=== PATIENT | female | born 1930 | race Caucasian/White ===

== ENCOUNTER 2018-12-30 11:15 | Outpatient (CLI) | payer OTHER ==
[~2018-12-30] VITALS: Ht 162.6 cm; Wt 65.8 kg
[2018-12-30 11:59] VITALS: BP 142/59
[2018-12-30 12:07] LABS: HEMATOCRIT 30.6 % (37.0-47.0); HEMOGLOBIN 10.6 gm/dL (12.0-15.0); MCH 32.9 pg (26.0-34.0); MCHC 34.7 g/dL (28.0-37.0); MCV 94.9 fL (80.0-100.0); RBC 3.23 mil/uL (4.20-5.00); RDW 15.5 % (10.5-14.5); WBC 9.1 thou/uL (4.0-11.0)
[2018-12-30 12:13] LABS: CALCIUM 10.3 mg/dL (8.5-10.1); CREATININE 0.6 mg/dL (0.6-1.0); POTASSIUM 3.7 mmol/L (3.5-5.1)
[2018-12-30] MEDS ORDERED: SYNTHROID100 MC1 PO (12:42)
[2018-12-30] MEDS ORDERED: ASPIRIN325 PO (12:43)
[2018-12-30] MEDS ORDERED: NORVASC5 MG PO (12:44)
[2018-12-30] MEDS ORDERED: METFORMIN HCL500 MG PO (12:44)
[2018-12-30] MEDS ORDERED: FOLIC ACID1 MG PO (12:45)
[2018-12-30] MEDS ORDERED: ZYRTEC10 M4 PO (12:46)
[2018-12-30] MEDS ORDERED: VITAMIN D3400 UNIT PO (12:46)
[2018-12-30] MEDS ORDERED: VITAMINC500 PO (12:47)
[2018-12-30] MEDS ORDERED: OMEGA-31000 M1 PO (12:47)
[2018-12-30 16:39] VITALS: BP 144/62
--- NOTE | 2018-12-30 19:21 | NUR ---
pt arrived to unit at 1630 via electroplating laborer from a angiogram. Right groin has remained cdi, vss, d/c home, script sent tp pharm
== END 2018-12-30 20:13 | disposition home or self-care (01) ==
LOC: SPEC 11:15 → 2N 16:35 → SPEC 20:13
PROVIDERS: Nuclear Medicine Nuclear Cardiology
DX: I70.248 Atherosclerosis of native arteries of left leg with ulceration of other part of lower leg (principal); I70.1 Atherosclerosis of renal artery; I10 Essential (primary) hypertension; E78.5 Hyperlipidemia, unspecified; I25.10 Atherosclerotic heart disease of native coronary artery without angina pectoris; M06.9 Rheumatoid arthritis, unspecified; E11.9 Type 2 diabetes mellitus without complications; Z85.828 Personal history of other malignant neoplasm of skin; Z98.890 Other specified postprocedural states; Z95.5 Presence of coronary angioplasty implant and graft; Z88.2 Allergy status to sulfonamides; Z88.6 Allergy status to analgesic agent; Z79.899 Other long term (current) drug therapy; Z79.82 Long term (current) use of aspirin
CPT/HCPCS: 10081

== ENCOUNTER 2018-12-31 06:53 | Inpatient (IN) | payer OTHER ==
[~2018-12-31] VITALS: Ht 162.6 cm; Wt 65.5 kg
[~2018-12-31 06:53] MED LIST: ASPIRIN325 PO; FOLIC ACID1 MG PO; METFORMIN HCL500 MG PO; NORVASC5 MG PO; OMEGA-31000 M1 PO; SYNTHROID100 MC1 PO; VITAMIN D3400 UNIT PO; VITAMINC500 PO; ZYRTEC10 M4 PO
[2018-12-31 18:12] VITALS: BP 134/57
[2018-12-31 18:32] LABS: ABSOLUTE NEUTROPHILS 9.5 thou/uL (1.4-8.2); BASOPHILS 0.2 % (0.0-2.0); EOSINOPHILS 0.1 % (0.0-3.0); HEMATOCRIT 30.4 % (37.0-47.0); HEMOGLOBIN 10.5 gm/dL (12.0-15.0); LYMPHOCYTES 6.8 % (24.0-44.0); MCH 32.6 pg (26.0-34.0); MCHC 34.4 g/dL (28.0-37.0); MCV 94.6 fL (80.0-100.0); MONOCYTES 6.6 % (1.0-8.0); PLATELET COUNT 360 thou/uL (150-400); POLYS 86.3 % (36.0-66.0); RBC 3.22 mil/uL (4.20-5.00); RDW 15.3 % (10.5-14.5)
[2018-12-31 18:53] LABS: ALBUMIN 2.8 g/dL (3.4-5.0); CALCIUM 9.5 mg/dL (8.5-10.1); CREATININE 0.8 mg/dL (0.6-1.0); MAGNESIUM 1.4 mg/dL (1.8-2.4); POTASSIUM 3.8 mmol/L (3.5-5.1); TOTAL BILIRUBIN 0.4 mg/dL (<0.1-1.0); TOTAL PROTEIN 6.8 g/dL (6.4-8.2)
[2018-12-31 19:22] VITALS: BP 130/68
--- NOTE | 2018-12-31 22:30 | NUR ---
PROGRESS PT ADMITTED WITH CHRONIC LEFT FOOT/ANKLE WOUNDS. BEING SEEN BY WOUND CARE CLINIC. PICTURES AND WOUNDS DOCUMENTED PER PROTOCOL. WOUNDS COVERED WITH KERLIX , DRESSINGS REMAIN C/D/I. SEEN BY WOUND CARE NURSE BUT NO ORDERS WRITTEN. DR.DAN DUBOIS AND WOUND CARE CONSULTED WILL SEE PT TOMORROW. TAKING HYDROCODNE FOR PAIN Q4HRS WITH EFFECT PT RESTS AFTER.
[2018-12-31 23:09] LABS: URINE BILIRUBIN NEGATIVE (Negative); URINE BLOOD NEGATIVE (Negative); URINE CLARITY CLEAR; URINE COLOR YELLOW; URINE GLUCOSE-RANDOM* NEGATIVE (Negative); URINE KETONES NEGATIVE (Negative); URINE LEUKOCYTES-REFLEX TRACE (Negative); URINE NITRITE-REFLEX NEGATIVE (Negative); URINE PROTEIN (DIPSTICK) NEGATIVE (Negative); URINE SPECIFIC GRAVITY <= 1.005 (1.005-1.035); URINE UROBILINOGEN 0.2 E.U./dl (0.2-1.0)
--- NOTE | 2018-12-31 23:18 | NUR ---
REPORT GIVEN TO CHIOMA TORRES FROM [facility], PT TRANSFERRED TO ROOM 432 MED/SURG BED FROM 462 TELE BED. PT TRANSPORTED VIA BED WHEELCHAIR AND ALL OTHER PERSONAL BELONGINGS WITH.
[2019-01-01 04:00] VITALS: BP 119/51
[2019-01-01 05:38] LABS: ABSOLUTE NEUTROPHILS 6.5 thou/uL (1.4-8.2); BASOPHILS 0.4 % (0.0-2.0); EOSINOPHILS 0.3 % (0.0-3.0); HEMATOCRIT 27.6 % (37.0-47.0); HEMOGLOBIN 9.9 gm/dL (12.0-15.0); MCH 33.8 pg (26.0-34.0); MCV 93.9 fL (80.0-100.0); MONOCYTES 8.4 % (1.0-8.0); PLATELET COUNT 335 thou/uL (150-400); POLYS 83.9 % (36.0-66.0); RBC 2.94 mil/uL (4.20-5.00); RDW 15.5 % (10.5-14.5); WBC 7.7 thou/uL (4.0-11.0)
[2019-01-01 05:53] LABS: CALCIUM 8.9 mg/dL (8.5-10.1); CREATININE 0.6 mg/dL (0.6-1.0); MAGNESIUM 1.4 mg/dL (1.8-2.4); POTASSIUM 3.8 mmol/L (3.5-5.1)
--- NOTE | 2019-01-01 07:53 | NUR ---
pt transferred to [facility] at around 11pm.Alert and oriented. Given [place] x 1.Up with assist x 1 to BS. Drsg to E c/d/i.Plan for MRI today. Afebrile. No further concerns.
[2019-01-01 08:18] VITALS: BP 118/61
--- NOTE | 2019-01-01 14:05 | NUR ---
WOUND CONSULT: PT. WAS SEEN TODAY BY DR. MAYORGA AND MYSELF. PT. HAS HAD A SURGICAL REPAIR TO HER LEFT FOOT AND LEG FROM A TIB-FIB FRACTURE IN 2018. THE BOOT WAS LEFT IN PLACE AND WOUNDS HAVE OCCURED BECUASE OF THIS. PT. LEFT FOOT IS SHOWING SIGNS OF INFECTION. LOCAL WOUND CARE WILL BE DONE AND ORTHO CONSULT FOR POSSIBLE HARDWARE REMOVAL AND WASH OUT. RECOMMENDATIONS: WOUND CARE TO LEFT FOOT: GENTLY CLENASE WITH WOUND CLEANSER OR NORMAL SALINE, APPLY GENTIMYCIN TO WOUND BED, COVER WITH XEROFORM, SECURE WITH KERLIX AND TAPE, COMPLETE CARES DAILY AND PRN. PT. AND STAFF NURSE WERE INSTRUCTED ON PLAN OF CARE.
--- NOTE | 2019-01-01 14:26 | NUR ---
Nutrition: pt admitted with non healing wound on left food. Hx PVD, PAD, DM. BG 148-215 on heart healthy diet. Pt reports a decreased appetite for some time although she still eats 3 meals/day-is not a big eater. Understands importance of protein for wound healing and can state sources. Drinks ensure daily at home, ordered at lunch. On ascorbic acid, vitamin D, folic acid. Instructed on meal ordering as desired, pt generally likes the meal offerings. May consider adding carb controlled to diet order if BG consistently elevated. Low nutrition risk.
--- NOTE | 2019-01-01 15:49 | NUR ---
ASSESASMENT-PT LIVES AT HOME WITH HER 89 YEAR OLD WHO IS IN GOOD HEALTH AND INDEPENDENT. HE DRIVES. THEY HAVE A SON IN [place] AND WONDERFUL NEIGHBORS. PT HAS A CANE, WALKER OR WC FOR MOBILITY. THEY HAVE A RAMP TO ENTER THEIR RANCH STYLE HOME. PT HAS HAD HH IN THE PAST BUT CANNOT REMEMBER THE NAME OF THE AGENCY. PT HAS BEEN TO REHAB AT [facility] IN THE PAST. FOLLOWING TO ASSIST WITH DC PLANNING.
[2019-01-01 16:50] VITALS: BP 135/53
--- NOTE | 2019-01-01 19:43 | NUR ---
Assumed pt care at 7am.Pt in and out of bed to bsc with assist.Assessment completed.vss.Pt left mri early this am and returned to room one hour later. Pt tolerated med and diet but poor appetite noted.Dr stack and Marlee here,order noted.Wound culture obtained x2 and sent to lab .Drsg change done to left ankle as ordered. at bs most of the times today.Medicated pt twice with hydrocodone with partial relief.Received call from Dr Fowler later this afternoon that pt should be npo fatr mn.Report off to noc rn.
[2019-01-01 20:48] VITALS: BP 127/49
--- NOTE | 2019-01-02 02:50 | NUR ---
PT ALERT AND ORIENTED. PLEASANT. PAIN FAIRLY COTROLLED WITH PAIN MEDS. DRSG TO L FOOT IS C/D/I. NWB TO L FOOT.PIVOTS TO BSC.AFEBRILE.
[2019-01-02 07:50] VITALS: BP 146/48
[2019-01-02 11:20] VITALS: BP 136/63
--- NOTE | 2019-01-02 12:06 | NUR ---
Assumed pt care at 7am.Pt in bed resting and very anxious about going for surgery today.Assessment completed.Pt c/o left ankle pain rated 6/10.[Po pain med given with relief.Received call from operating room,updates given.At 1115, pt left per bed to surgery accompanied by her .Will continue to monitor.
--- NOTE | 2019-01-02 12:42 | NUR ---
Pt TO HAVE I&D OF L ANKLE WITH POSSIBLE HARDWARD REMOVAL. PT WILL PLACE Pt ON HOLD, PLEASE SEND NEW PT ORDERS WITH UPDATED WB STATUS WHEN Pt IS APPROPRIATE FOR PT.
--- NOTE | 2019-01-02 13:24 | HC ---
[facility] [place] [address] CONSULTATION Name: CHIKI SHIELDS Room #: 432 ADM IN M.R.#: [id number] Admission: 12/31/18 ������������������ Attend Phys: Alton Aguirre MD Discharge: ������������������ Date of : 32 Report #: [id number] THIS REPORT FOR: //name// CC: Emery Tolentino DATE OF SERVICE: 01/01/2019 TYPE OF REPORT: Infectious diseases consultation. REASON FOR CONSULTATION: I was asked to evaluate concerning left lower extremity surgical site infection. HISTORY OF PRESENT ILLNESS: The patient is an 88-year old with underlying peripheral vascular disease, diabetes and coronary artery disease; who fell this past month, fractured her left tibia and fibula and underwent ORIF. Postoperatively, developed ulceration and blistering to the dorsum of her foot and medial ankle. Also, developed a drainage from her anterior medial incision. No fever, chills or sweats. She was brought into the hospital after being seen in the outpatient wound Care Center. She had arterial studies done noting proximal obstruction. Yesterday, underwent angioplasty and stenting of the left superficial femoral artery. She continues to have pain in the ankle and foot. No fever, chills or sweats. REVIEW OF SYSTEMS: No cough or sputum production. No chest pain. Denies any GI or complaints. A 10-point review of systems was negative other than what is described above. ALLERGIES: CODEINE and SULFA. MEDICATIONS: As noted on her NOV, having been started on vancomycin. PAST MEDICAL HISTORY: Hyperlipidemia, diabetes, rheumatoid arthritis, coronary artery disease, skin cancer, breast cancer, lumbar radiculopathy and coronary artery stents. FAMILY HISTORY: Noncontributory. SOCIAL HISTORY: Previous tobacco use. Minimal alcohol use. PHYSICAL EXAMINATION: VITAL SIGNS: Afebrile, hemodynamically stable. GENERAL: Alert and cooperative. EYES: Without scleral icterus. MOUTH: Without mucositis. [facility] [address] [place] [address] CONSULTATION Name: CHIKI SHIELDS Room #: 432-P [facility] IN [place].#: [id number] Admission: 12/31/18 ������������������ Attend Phys: Alton Aguirre MD Discharge: ������������������ Date of : 32 Report #: [id number] NECK: Supple. No palpable adenopathy. SKIN: Without rash or decubitus other than what we described in her left lower extremity. LUNGS: Clear. HEART: Regular, without murmur. ABDOMEN: Soft and nontender. EXTREMITIES: With left lower extremity wounds to the dorsum of her foot and medial malleolus region. There was eschar. There was no significant drainage. The anterior medial incision had a sinus tract with purulent drainage. Moderate surrounding erythema. She was exquisitely tender over the medial lower leg, ankle and foot. Laterally, the incision was well approximated. There was no associated cellulitis in this region. Sensation in the toes was normal. Pulses were palpable on the foot. NEUROLOGICAL: Cranial nerves intact. Strength in the upper extremities was normal. RADIOLOGICAL DATA: MRI scan of the left ankle showed tibial and fibular fractures with hardware repair. She had a tibiotalar joint effusion. No definite abscess evident. X-rays of the foot showed fractures as above. LABORATORY DATA: Sedimentation rate 80. Hemoglobin 9.9; WBC 7.7 and platelet count 335,000. Creatinine 0.6. IMPRESSION: 1. Left lower extremity tibia fibular fracture status post open reduction and internal fixation, now with surgical site infection. Still concerned about the fracture site of the tibia. She has severe peripheral vascular disease and is now status post atherectomy, balloon angioplasty and stenting of the left superficial femoral artery. 2. Diabetes. 3. Hypertension. 4. Previous cancers of skin and breast. RECOMMENDATIONS: 1. We will continue vancomycin and cefepime pending culture results. Have obtained a culture of the drainage from the medial ankle sinus tract. I would like Orthopedic Surgery to evaluate. I suspect she will need further surgical intervention. 2. Controlled diabetes. 3. Anticoagulation regarding previous stenting procedure done yesterday. ��������������������������������������������� <ELECTRONICALLY SIGNED> ���������������������������������������� By: Babatunde Sanchez MD ��������������������������������������������� 01/02/19 1324 [id number] Babatunde Sanchez MD /nt
--- NOTE | 2019-01-02 16:33 | NUR ---
GAVE PT'S AND NEIGHBOR COPY OF [facility] SNF LIST AND CIRCLED FACILITIES THAT DR STEPHEN/TIERRA FOLLOW. PT DOES NOT WANT TO RETURN TO [facility].
[2019-01-02 16:38] VITALS: BP 109/38
[2019-01-02 21:22] VITALS: BP 114/41
[2019-01-02 21:58] VITALS: BP 121/80
[2019-01-03 04:57] VITALS: BP 123/52
[2019-01-03 05:25] LABS: HEMATOCRIT 21.2 % (37.0-47.0); MCH 32.3 pg (26.0-34.0); MCHC 34.2 g/dL (28.0-37.0); MCV 94.6 fL (80.0-100.0); RBC 2.24 mil/uL (4.20-5.00); RDW 15.5 % (10.5-14.5); WBC 9.1 thou/uL (4.0-11.0)
[2019-01-03 05:35] LABS: HEMOGLOBIN 7.2 gm/dL (12.0-15.0)
--- NOTE | 2019-01-03 08:04 | NUR ---
ASSESSMENT COMPLEETD.NOTED MORE DRAINAGE AT THE SIDE OF HER DRSG ON HER L LOWER LEG.CONT ON IV ABX.C/O PAIN ON HER ANKLE,MANAGED WITH PO MED.UP WITH ASSIST X1,NON WT BEARING ON L MAINTAINED.REPORT TO AM NURSE.
[2019-01-03 09:14] VITALS: BP 123/43
--- NOTE | 2019-01-03 14:34 | NUR ---
ASSESMENT COMPLETED. VSS. A/O. PAIN MANAGED BY MEDS ORDERED. NO NOTED SOA. NO NV. PT RESTING IN BED. UP WITH ASSIST. WILL CONT. TO MONITOR.
[2019-01-03 16:05] VITALS: BP 114/39
[2019-01-03 20:00] VITALS: BP 119/45
[2019-01-04 04:00] VITALS: BP 120/50
[2019-01-04 04:32] LABS: MCH 32.7 pg (26.0-34.0); MCHC 34.7 g/dL (28.0-37.0); MCV 94.2 fL (80.0-100.0); RBC 1.94 mil/uL (4.20-5.00); RDW 15.2 % (10.5-14.5); WBC 9.4 thou/uL (4.0-11.0)
[2019-01-04 04:42] LABS: HEMOGLOBIN 6.4 gm/dL (12.0-15.0)
[2019-01-04 04:43] LABS: HEMATOCRIT 18.3 % (37.0-47.0)
[2019-01-04 06:04] LABS: % SATURATION 28 % (20-39); IRON 44 ug/dL (50-170); TIBC 160 ug/dL (250-450)
--- NOTE | 2019-01-04 07:30 | NUR ---
Assumed care of pt at 1900. Pt alert and oriented x4. Dressing on left ankle intact. Pain controlled with prn pain meds. IV antibiotics administered. Non-weight bearing on left lower extremity. Critical hg 6.4 and hematocrit 18.3 this am. Quantitative Manager on duty notified and new orders noted. Obtained blood from blood bank this am and handed it to incoming am rn. Call light within reach.
[2019-01-04 07:34] VITALS: BP 115/73; BP 120/72; BP 123/49; BP 133/43; BP 144/49
[2019-01-04 07:49] VITALS: BP 118/46
--- NOTE | 2019-01-04 12:43 | NUR ---
V.S. AT 10:40 98.1 18 76 122/68 99 % RA. PT HAS BLOOD INFUSING WITH NO ADVERSE REACTIONS. PT ALERT XS 4.
--- NOTE | 2019-01-04 16:22 | NUR ---
CALLED IV TEAM TO NOTIFY OF PICC LINE PLACEMENT. PT IS WATCHING TV AT BEDSIDE. PT WAS GIVEN PRN PAIN MED EARLIER AND RESTING COMFORTABLY.
--- NOTE | 2019-01-04 17:42 | NUR ---
PT IN BED EATING DINNER GETS UP TO BEDSIDE COMMODE. PT'S AT THE BEDSIDE. HAD 1 UNIT OF BLOOD TODAY. PT IS PLEASANT AND COOPERATIVE WITH CARE.
--- NOTE | 2019-01-04 19:50 | NUR ---
CONSULTED TO PLACE A PICC FOR A PATIENT NEEDING HOME IV ANTIBIOTICS. ORDER AND CONSENT NOTED. THE PROCEDURE WELL BENIFITS AND RISK FOR DVT AND INFECTION DISCUSSED AND SHE VERBALIZED UNDERSTANDING. THE LEFT UPPER ARM BRACHIAL WAS WIDLEY PATENT. A #4F SINGLE LUMEN POWER PICC WAS PLACED PER HOSPITAL POLICY AFTER A BEDSIDE TIMEOUT WAS COMPLETE. LINE WAS TRIMMED TO 43CM AND ADVANCED WITHOUT DIFFICULTY. LINE WAS CONFIRMED IN GOOD POSITION FOR BY A STAT CHEST XRAY. 4E NOTIFIED LINE IS RELEASED FOR USE
[2019-01-04 19:54] VITALS: BP 153/53
--- NOTE | 2019-01-04 22:00 | NUR ---
ASSESSMENT COMPLETED. PICC IN PLACE AND IV ABTS INFUSED. PT GIVEN PAIN MEDS-REPORTS PAIN HAS BEEN MORE TODAY SINCE THE DRSG CHANGE EARLIER IN THE DAY.LLE WITH DRSG C/D/I-NEUROVASCULAR INTACT.PT IS PLEASANT AND COOPERATIVE. PIVOTS TO THE BSC-SBA X1. AFEBRILE. HS BLOOD SUGAR OF 86-PT NOT WANTING SNACKS OFFERED. VSS. NO FURTHER COMPLAINS.WILL CONTINUE WITH POC TILL EOS.
[2019-01-05 04:35] VITALS: BP 150/59
[2019-01-05 06:05] LABS: HEMOGLOBIN 8.1 gm/dL (12.0-15.0); MCH 32.5 pg (26.0-34.0); MCV 92.8 fL (80.0-100.0); RBC 2.48 mil/uL (4.20-5.00); RDW 16.5 % (10.5-14.5); WBC 8.6 thou/uL (4.0-11.0)
[2019-01-05 06:23] LABS: CALCIUM 9.1 mg/dL (8.5-10.1); CREATININE 0.6 mg/dL (0.6-1.0); MAGNESIUM 1.4 mg/dL (1.8-2.4)
[2019-01-05 08:04] VITALS: BP 140/43
--- NOTE | 2019-01-05 14:47 | NUR ---
WOUND FOLLOW UP: PT. WAS SEEN TODAY BY WOUND CARE. PT. HAD SURGERY OVER THE WEEKEND AND HARDWARE WAS REMOVE AND WASHOUT WAS COMPLETED. PT. WOUNDS APPEAR CLINICALLY BETTER TODAY. RECOMMENDATIONS: CONTINUE WITH CURRENT PLAN OF CARE. PT.AND STAFF NURSE WERE INSTRUCTED ON PLAN OF CARE.
--- NOTE | 2019-01-05 15:51 | NUR ---
I have reviewed the documentation by AMIE MURRIETA from 01/05/19 to 01/05/19 and I concur with it. CAMILA RODRIGUEZ
[2019-01-05 16:09] VITALS: BP 134/40
--- NOTE | 2019-01-05 16:54 | NUR ---
FAXED REFERRAL TO [facility] LEFT MSG WITH ADM. TO REVIEW REFERRAL AND DCP WILL F/U IN AM. DCP TO FOLLOW.
--- NOTE | 2019-01-05 17:09 | NUR ---
MET WITH PT AND IN ROOM AND THEY THINK TRYING TO GO HOME ON IV ABX IS TOO MUCH & ARE INTERESTED IN [facility]. ASKED DC ROUND BONER TO FAX REFERRAL TO THEM. FOLLOWING.
--- NOTE | 2019-01-05 18:46 | NUR ---
NO CHANGE SINCE AM ASSESMENT. PAIN MANAGED BY MEDS ORDERED. UP WITH STAND BY. WILL CONT. TO MONITOR.
[2019-01-05 20:05] VITALS: BP 131/47
[2019-01-06 04:12] VITALS: BP 134/39
[2019-01-06 07:25] VITALS: BP 133/54
--- NOTE | 2019-01-06 07:36 | NUR ---
ASSESMENT COMPLETED. VSS. A/O. PAIN MANAGED BY MEDS- MORE CONTROLLED TODAY. NO SOA. NO NV. GOAL IS ICNREASE ACTIVITY TODAY. PT RESTING IN BED BED ALARM ON. WILL CONT. TO MONITOR.
--- NOTE | 2019-01-06 09:52 | HC ---
[facility] [place] [address] CONSULTATION Name: CHIKI SHIELDS Room #: 432- ADM IN M.[place].#: [id number] Admission: 12/31/18 ������������������ Attend Phys: Alton Aguirre MD Discharge: ������������������ Date of : 32 Report #: [id number] THIS REPORT FOR: //name// CC: Emery Tolentino DATE OF SERVICE: 01/01/2019 CHIEF COMPLAINT: Ulceration to the left medial ankle. HISTORY OF PRESENT ILLNESS: This is an 88-year-old female patient with a history of a closed tibia and fibula fracture on 11/23/2018. She underwent open reduction and internal fixation, was placed in a boot. She underwent rehab, felt that the boot was rubbing and too tight and developed some tissue necrosis involving the medial portion of the left ankle. It has become infected and began draining and has been admitted for further evaluation and treatment. PAST MEDICAL HISTORY: Significant for history of peripheral arterial disease, as well as diabetes mellitus. The patient had an open reduction and internal fixation of the left ankle in October. She has history of hyperlipidemia, type 2 diabetes mellitus, rheumatoid arthritis and coronary artery disease and lumbar radiculopathy. MEDICATIONS: Include Synthroid, Norvasc, Glucophage, Zyrtec, vitamin D, vitamin C, omega 3. SOCIAL HISTORY: Positive for smoking cigarettes 1 pack per day. Admits to occasional alcohol consumption. FAMILY HISTORY: Noncontributory. REVIEW OF SYSTEMS: CONSTITUTIONAL: No fever, chills, weight loss. NEUROLOGICAL: The patient denies focal weakness, numbness or tingling. EYES: The patient denies visual changes, redness or drainage. ENT: The patient denies earache, nasal drainage or sore throat. CARDIOVASCULAR: The patient denies chest pain or palpitations. PULMONARY: The patient denies cough or shortness of breath. GASTROINTESTINAL: The patient denies nausea, vomiting or abdominal pain. ORTHOPEDIC: The patient complains of pain, swelling and drainage from her left ankle. Other systems in a 14-point review of systems are negative. PHYSICAL EXAMINATION: [facility] [address] [place] [address] CONSULTATION Name: CHIKI SHIELDS Room #: 432-P [facility] IN M.R.#: [id number] Admission: 12/31/18 ������������������ Attend Phys: Alton Aguirre MD Discharge: ������������������ Date of : 32 Report #: [id number] VITAL SIGNS: At this time include temperature 37.4, pulse 94, respiratory rate 18, blood pressure 118/61. GENERAL: This is a chronically ill-appearing female patient who appears to be in no distress. HEENT: Normocephalic. Nose and throat are clear. NECK: Supple. LUNGS: Clear. HEART: Sounds were regular rhythm without murmur. ABDOMEN: Soft. Bowel sounds present. EXTREMITIES: Examination of the lower extremities demonstrates diminished distal pulses, 2+ edema bilaterally. She has significant erythema to the left lower leg and dorsal foot. There is area of pressure necrosis or simply and necrotic tissue over the medial ankle. This is partially and there is a purulent drainage coming from beneath. I can probe easily beneath this and find that there is exposed hardware present. CLINICAL IMPRESSION: 1. Pressure ulceration to the left medial ankle, complicated by diabetes mellitus and peripheral arterial disease. 2. Wound infection with infected underlying hardware. 3. History of tibia and fibula fracture, status post open reduction and internal fixation, 11/23/2018. RECOMMENDATIONS: At this point in time, we will check arterial Dopplers and then we will consul interventional radiology. She may require percutaneous intervention. We will consult orthopedic surgery. Likely, she will require explantation of hardware. This is certainly a difficult situation and she would be at risk for below-knee amputation or possibly higher level amputation. We will see how we do once we get the hardware out and try to get the infection under control. She may be a good candidate for a skin substitute in hopes that we could begin to granulate over the bone. She will need stabilization for the fracture, likely with a splint versus the possibility of an external fixator. I have discussed this with the orthopedic surgeon, as well as infectious disease and interventional radiology. I have discussed these details in depth with the patient and her at the bedside. I appreciate being asked to see her in consultation. ��������������������������������������������� <ELECTRONICALLY SIGNED> ���������������������������������������� By: Maurice Whalen MD ��������������������������������������������� 01/06/19 [id number] Maurice Whalen MD /nt
--- NOTE | 2019-01-06 15:04 | NUR ---
LAND DEVELOPMENT PROJECT MANAGER FROM [facility] HERE TO MEET PT AND HER . AWAITING INS. AUTH.
--- NOTE | 2019-01-06 15:40 | NUR ---
WOUND FOLLOW UP: PT. WAS SEEN TODAY BY DR. MAYORGA AND MYSELF. PT. WOUNDS ARE CLINICALLY BETTER TODAY. PT. IS IN GOOD SPIRITS. RECOMMENDATIONS: CONTINUE WITH CURRENT PLAN OF CARE. PT. AND STAFF NURSE WERE INSTRUCTED ON PLAN OF CARE.
[2019-01-06 17:10] VITALS: BP 130/55
[2019-01-06 20:07] VITALS: BP 147/52
[2019-01-07 04:53] VITALS: BP 151/45
--- NOTE | 2019-01-07 05:27 | NUR ---
Assumed care of pt at 1900. Pt alert and oriented x4. Pt requests eye drops. Continuous Miner Operator Helper on duty notified and new order noted. Dressing on left foot clean and intact. Hold metformin due to contrast used. Non-weight bearing on left lower extremity. Uses bedside commode. Call light within reach. Will continue to monitor.
[2019-01-07 05:49] LABS: HEMATOCRIT 24.8 % (37.0-47.0); HEMOGLOBIN 8.4 gm/dL (12.0-15.0); MCH 31.9 pg (26.0-34.0); MCHC 33.9 g/dL (28.0-37.0); RBC 2.64 mil/uL (4.20-5.00); RDW 16.1 % (10.5-14.5); WBC 7.3 thou/uL (4.0-11.0)
[2019-01-07 05:55] LABS: CALCIUM 9.3 mg/dL (8.5-10.1); CREATININE 0.7 mg/dL (0.6-1.0); POTASSIUM 3.9 mmol/L (3.5-5.1)
[2019-01-07 07:44] VITALS: BP 137/51
--- NOTE | 2019-01-07 08:46 | NUR ---
I have reviewed the documentation by AMIE MURRIETA from 01/06/19 to 01/06/19 and I concur with it. CAMILA RODRIGUEZ
--- NOTE | 2019-01-07 09:53 | NUR ---
[facility] FAXED IV ABX ORDERS TO [facility] SPOKE WITH WOLFGANG IN ADM. SHE RECEIVED ORDERS AND STILL WTG ON AUTH . [facility] TO FOLLOW.
[2019-01-07 09:54] VITALS: BP 137/57
--- NOTE | 2019-01-07 11:11 | NUR ---
PT A&OX4, TRANFERS WITH ASSIST X1 TO CHAIR/BSC. PICC LINE INTACT IN TIM AND L FA. DRSG TO L ANKLE C/D/I. TOLERATING PO PAIN MEDS. WILL CONT POC.
[2019-01-07] MEDS ORDERED: LATANOPROST2.5 ML OPHTHALMIC (14:06)
[2019-01-07] MEDS ORDERED: HYDROCODON-ACE1 EAC7 PO (14:06)
[2019-01-07] MEDS ORDERED: MIRALAX17 GM PO (14:06)
[2019-01-07] MEDS ORDERED: MAGNESIUM400 MG PO (14:06)
--- NOTE | 2019-01-07 15:34 | NUR ---
Pt dcing to snf at [facility] today. They have confirmed that they have rec'd ins authorization. Pt and spouse updated at bedside. The snf is sending a w/c van to transport the pt at 4:30. All parties updated. Chart copy, orders and scripts ready to be sent with the pt. Dc land use planner to fax the final orders and nursing to call report. Pt to be skilled for iv atb and therapy.
--- NOTE | 2019-01-07 16:15 | NUR ---
DC ORDERS RECEIVED. TIM PICC LINE WILL REMAIN IN PLACE FOR IV ANTIBIOTIC AT SNF. REPORT CALLED TO [place] AT [facility]. AWAITING FOR TRANSPORTATION.
--- NOTE | 2019-01-08 11:20 | O ---
[facility] [place] [address] OPERATIVE REPORT Name: CHIKI SHIELDS Room #: 432-P [facility] IN M.R.#: [id number] Admission: 12/31/18 ������������������ Attend Phys: Alton Aguirre MD Discharge: 01/07/19 ������������������ Date of : 32 Report #: [id number] THIS REPORT FOR: //name// CC: Emery Lozadahens DATE OF SERVICE: 01/02/2019 PREOPERATIVE DIAGNOSIS: Postoperative left ankle infection with medial ankle eschar down to exposed hardware. POSTOPERATIVE DIAGNOSIS: Postoperative left ankle infection with medial ankle eschar down to exposed hardware. PROCEDURE: 1. Debridement and irrigation of left angle down to bone. 2. Hardware removal, left distal medial tibial plate. 3. Application of a short leg splint. SURGEON: Michael Reaves MD. UPHOLSTERY HANDLER: Gayathri Lincoln PA-C. ANESTHESIA: LMA. FINDINGS: Exposed hardware over the distal medial malleolus with purulent drainage from the wound, medial eschar measuring 7 x 7 cm, a dorsal foot eschar measuring 3 x 4 cm. SPECIMENS: Cultures were taken from the bone. ESTIMATED BLOOD LOSS: 50 mL. COMPLICATIONS: None. CONDITION UPON LEAVING OPERATING ROOM: Stable. INDICATION FOR PROCEDURE: The patient is an 88-year-old female who a little over a month ago sustained a distal third tib-fib fracture of the left leg. She was treated at [facility] by Dr. Stevan Woodall with ORIF. Evidently, over the past several weeks, she has had a pain in her medial ankle and came to see wound care, was found to have an eschar over her medial ankle with exposed hardware deep in the wound. She was admitted to the hospital for treatment. [address] [address] OPERATIVE REPORT Name: CHIKI SHIELDS Room #: 432-P [facility] IN [place].#: [id number] Admission: 12/31/18 ������������������ Attend Phys: Alton Aguirre MD Discharge: 01/07/19 ������������������ Date of : 32 Report #: [id number] DESCRIPTION OF PROCEDURE: Risks, benefits, alternatives, complications were discussed in detail with the patient including but not limited to risk of anesthesia, risk of damage to nerves, arteries, blood vessels, risk for infection, bleeding, continued infection and possible need for below knee amputation. Plan was for debridement and irrigation of the wound and hardware removal. Informed consent was obtained. The patient's left lower extremity was appropriately marked in the preoperative holding area. She had previously been on antibiotics, so repeat IV antibiotics were not given. brought to the operating room and placed in supine position on operating room table. LMA anesthesia was induced without complication. Tourniquet was placed on the left thigh. Left lower extremity was prepped and draped in normal sterile fashion. Timeout was performed properly identifying the patient and procedure as well as the instrumentation. All in the operating room were in agreement. The eschar over the medial ankle was removed with a 10 blade and there was obvious exposed distal hardware. The medial incision was then opened with 10 blade and the wound was opened all the way up to the proximal area of the plate. Screws were then removed from the plate. There was purulence in this area and this was cultured. Through the screws were cold welded to the plate, so the plate actually had to be just removed manually by pulling it up and off the bone. The tibial fracture was obviously not healed as she is less than 3 months out from her surgery. This was then thoroughly irrigated with normal saline. The skin incision was closed with 2-0 nylon. The dorsal foot wound was unroofed also. Dorsal wound measured 3 x 4 cm. The medial wound measured approximately 7 x 7 cm. After this, 4 x 4s were soaked in Dakin solution and applied. Webril was applied and a short leg posterior splint was molded in order to be removed for wound care. The patient tolerated this procedure well and went to recovery room under care of anesthesia postoperatively. ��������������������������������������������� <ELECTRONICALLY SIGNED> ���������������������������������������� By: Michael Reaves MD ��������������������������������������������� 01/08/19 1120 [id number] Michael Reaves MD /nt
--- NOTE | 2019-01-08 11:20 | HC ---
[facility] [place] [address] CONSULTATION Name: CHIKI SHIELDS Room #: 432-P [facility] IN M.R.#: [id number] Admission: 12/31/18 ������������������ Attend Phys: Alton Aguirre MD Discharge: 01/07/19 ������������������ Date of : 32 Report #: [id number] THIS REPORT FOR: //name// CC: Emery Lozadahens DATE OF SERVICE: 01/02/2019 REASON FOR CONSULTATION: Left ankle eschar with exposed hardware. HISTORY OF PRESENT ILLNESS: The patient is an 88-year-old female who about a month or so ago fell and sustained a distal third tib-fib fracture. She was treated at [facility] by Dr. Stevan Woodall with ORIF of her distal third tib-fib fracture. She had a medial tibial plate and a lateral fibular plate placed. Evidently, she was placed in boot and she developed a wound over her medial ankle with eschar over this. She was seen by wound care and was sent to the hospital for admission. PAST MEDICAL HISTORY, MEDICATIONS AND ALLERGIES: All been reviewed and on the chart. PHYSICAL EXAMINATION: GENERAL: Well-developed, well-nourished female in no acute distress. She is alert and oriented, pleasant, cooperative with exam. EXTREMITIES: Examination of the left ankle shows to have a large eschar approximately 7 x 7 cm over her medial ankle. There is exposed hardware, deep in the wound. She has a second small eschar over her anterior foot. This is about 2 x 3 cm. There was purulence coming from the previous wound. Her lateral incision is well healed. She has decreased sensation to light touch. She does have brisk capillary refill. X-RAY EXAMINATION: Two-view of the left tib-fib shows to have ORIF of her distal third tib-fib fracture with fracture well-reduced. There is still evidence of fracture line on her tibia and her fibula. MRI scan has been reviewed also. ASSESSMENT: Left medial ankle pressure ulcer with exposed hardware, status post open reduction and internal fixation distal third tib-fib fracture. PLAN: Diagnosis and treatment options were discussed today with the patient and her . We discussed options including removal of hardware with debridement, irrigation and wound care in hopes to heal the medial wound. We also discussed the fact that secondary to her diabetes as well as peripheral vascular disease, my expectation of this healing is very low. We discussed the possibility of a below-knee amputation for definitive treatment. She is not [address] [address] CONSULTATION Name: CHIKI SHIELDS Room #: 432-P [facility] IN M.R.#: [id number] Admission: 12/31/18 ������������������ Attend Phys: Alton Aguirre MD Discharge: 01/07/19 ������������������ Date of : 32 Report #: [id number] interested in this at this time. We will proceed with irrigation and debridement of the left medial ankle with hardware removal of the tibia and she is understanding and wished to proceed. Thank you for allowing us to participate in care of the patient. ��������������������������������������������� <ELECTRONICALLY SIGNED> ���������������������������������������� By: Michael Reaves MD ��������������������������������������������� 01/08/19 1120 1422 1603 Michael Revaes MD /nt
== END 2019-01-07 18:31 | DRG 492 ==
LOC: HYPER 06:53 → 4W 16:47 → 4E 16:47
PROVIDERS: Hospitalist; Nurse Practitioner; Nurse Practitioner Acute Care; Orthopaedic Surgery; ADMIT Internal Medicine
PROC: 0QPH04Z Removal of Internal Fixation Device from Left Tibia, Open Approach (ICD-10-PCS; 2019-01-02)
PROC: 0QBH0ZZ Excision of Left Tibia, Open Approach (ICD-10-PCS; 2019-01-02)
PROC: 30243N1 Transfusion of Nonautologous Red Blood Cells into Central Vein, Percutaneous Approach (ICD-10-PCS; principal; 2019-01-04)
PROC: 02HV33Z Insertion of Infusion Device into Superior Vena Cava, Percutaneous Approach (ICD-10-PCS; principal; 2019-01-04)
DX: T84.623A Infection and inflammatory reaction due to internal fixation device of left tibia, initial encounter (principal); A41.9 Sepsis, unspecified organism; E43 Unspecified severe protein-calorie malnutrition; M86.8X7 Other osteomyelitis, ankle and foot; D62 Acute posthemorrhagic anemia; L03.116 Cellulitis of left lower limb; T84.625A Infection and inflammatory reaction due to internal fixation device of left fibula, initial encounter; L89.529 Pressure ulcer of left ankle, unspecified stage; I10 Essential (primary) hypertension; E03.9 Hypothyroidism, unspecified; E83.42 Hypomagnesemia; M62.84 Sarcopenia; R91.8 Other nonspecific abnormal finding of lung field; K59.00 Constipation, unspecified; Y83.8 Other surgical procedures as the cause of abnormal reaction of the patient, or of later complication, without mention of misadventure at the time of the procedure; B96.5 Pseudomonas (aeruginosa) (mallei) (pseudomallei) as the cause of diseases classified elsewhere; B95.61 Methicillin susceptible Staphylococcus aureus infection as the cause of diseases classified elsewhere; E11.69 Type 2 diabetes mellitus with other specified complication; E78.5 Hyperlipidemia, unspecified; E11.51 Type 2 diabetes mellitus with diabetic peripheral angiopathy without gangrene; I25.10 Atherosclerotic heart disease of native coronary artery without angina pectoris; Z88.5 Allergy status to narcotic agent; Z88.2 Allergy status to sulfonamides; Z85.3 Personal history of malignant neoplasm of breast; Z85.828 Personal history of other malignant neoplasm of skin; Z95.5 Presence of coronary angioplasty implant and graft; Z79.84 Long term (current) use of oral hypoglycemic drugs; Z68.24 Body mass index [BMI] 24.0-24.9, adult; Y92.89 Other specified places as the place of occurrence of the external cause; Z85.118 Personal history of other malignant neoplasm of bronchus and lung
CPT/HCPCS: 10783; 27000; 50010; 50101; 50386; 51412; 52124; 52313; 53078; 56527; 57091; 57103; 62110; 62900; 70005

== ENCOUNTER 2019-02-20 13:18 | Inpatient (IN) | payer OTHER ==
[~2019-02-20] VITALS: Ht 162.6 cm; Wt 71.2 kg
--- NOTE | ~2019-02-20 | HC ---
[facility] [place] [address] CONSULTATION Name: CHIKI SHIELDS Room #: 452-P [facility] IN M.R.#: [id number] Admission: 02/20/19 ������������������ Attend Phys: Morales Yu MD Discharge: ������������������ Date of : 32 Report #: [id number] THIS REPORT FOR: //name// CC: Morales Hyatt DATE OF SERVICE: 02/21/2019 REASON FOR CONSULTATION: Left leg wound. HISTORY OF PRESENT ILLNESS: The patient is an 88-year-old female known to my practice who apparently had a distal tib-fib fracture treated by Dr. Stevan Woodall in October. Apparently, she subsequently developed an infection and she subsequently underwent an irrigation and debridement with hardware removal of the tibia. She has been treated by wound care as well, had a course of IV antibiotics and was switched to oral. She had been doing well until 2 days ago where she noticed increased redness and swelling of her leg. She reports, in the interim, having left lower extremity stent placed to improve blood flow. REVIEW OF SYSTEMS: NEUROLOGIC: Denies numbness or tingling. INTEGUMENTARY: Denies other ulcerations. PAST MEDICAL HISTORY: Significant for diabetes, hypertension, hyperlipidemia, hypothyroidism. PAST SURGICAL HISTORY: Hysterectomy, lumpectomies, ORIF of the distal tib-fib in October 2018 with subsequent hardware removal in approximately December 2018. 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 ALLERGIES: CODEINE AND SULFA. MEDICATIONS: Reported home medications include bimatoprost, methotrexate, atorvastatin, levothyroxine, aspirin, amlodipine, metformin, folic acid, cetirizine, cholecalciferol, ascorbic acid and omega 3. SOCIAL HISTORY: Lives with her . Denies smoking, drinks 2-3 alcoholic drinks a night intermittently. LABORATORY DATA: Done on 02/21/2019 shows white blood cell count 5.8, hemoglobin 9.7 and hematocrit 28.8, platelet count 260. Basic metabolic panel is grossly normal except for C-reactive protein on 02/20/2019 elevated at 14.1. PHYSICAL EXAMINATION: GENERAL: The patient is alert and oriented, interacts appropriately. She is a well-developed, well-nourished female who converses well [place] [address] CONSULTATION Name: CHIKI SHIELDS Room #: [address] [place] [address] [place] .R.#: [id number] Admission: 02/20/19 ������������������ Attend Phys: Morales Yu MD Discharge: ������������������ Date of : 32 Report #: [id number] VITAL SIGNS: Most recent vital signs show temperature of 36.8, heart rate 66, respiratory rate 16, blood pressure 125/51, pulse oximetry 93% on room air. EXTREMITIES: Examination of her left lower extremity, she has brisk capillary refill. Sensation is intact to light touch throughout. She has an anterior mid foot wound that measures approximately 3 cm with fibrinous tissue at the bed. There is a lateral wound and these all appear fairly superficial and each have some erythema around them. There is diffuse edema to the leg. She wiggles her toes without significant pain. RADIOGRAPHS: AP and lateral of the left tib-fib, images were reviewed and interpreted by myself as well as report was reviewed, which shows absence of tibia hardware with evidence of a prior fracture fixation. The fracture appears to be mostly consolidated. There does not appear to be any significant osteolysis. Fibula shows intact hardware with no evidence of loosening. Three views of the left foot shows diffuse osteopenia without evidence of bony destruction. IMPRESSION AND PLAN: Left lower extremity cellulitis with persistent wound. At this point, I do not feel like there is osteomyelitis. Would recommend antibiotics per infectious disease as well as wound care. We will continue to follow this patient. Thank you very much for allowing me to participate in the care of this patient. ��������������������������������������������� ���������������������������������������� By: ��������������������������������������������� 0726 1235 Judit Dugan MD /nt
[~2019-02-20 13:18] MED LIST changes: +HYDROCODON-ACE1 EAC7 PO; +LATANOPROST2.5 ML OPHTHALMIC; +MAGNESIUM400 MG PO; +MIRALAX17 GM PO
[2019-02-20 13:27] VITALS: BP 128/49
[2019-02-20 15:16] LABS: ABSOLUTE NEUTROPHILS 6.5 thou/uL (1.4-8.2); BASOPHILS 0.6 % (0.0-2.0); EOSINOPHILS 0.4 % (0.0-3.0); HEMATOCRIT 31.5 % (37.0-47.0); HEMOGLOBIN 10.6 gm/dL (12.0-15.0); LYMPHOCYTES 8.3 % (24.0-44.0); MCH 31.1 pg (26.0-34.0); MCHC 33.8 g/dL (28.0-37.0); MCV 91.8 fL (80.0-100.0); MONOCYTES 7.3 % (1.0-8.0); PLATELET COUNT 291 thou/uL (150-400); POLYS 83.4 % (36.0-66.0); RBC 3.43 mil/uL (4.20-5.00); WBC 7.8 thou/uL (4.0-11.0)
[2019-02-20 15:22] LABS: CALCIUM 9.7 mg/dL (8.5-10.1); CREATININE 0.7 mg/dL (0.6-1.0)
[2019-02-20 15:28] LABS: ALBUMIN 3.2 g/dL (3.4-5.0); TOTAL BILIRUBIN 0.2 mg/dL (<0.1-1.0)
[2019-02-20 16:27] VITALS: BP 134/55
[2019-02-20 16:37] VITALS: BP 154/59
[2019-02-20 16:54] LABS: URINE BILIRUBIN NEGATIVE (Negative); URINE BLOOD TRACE (Negative); URINE CLARITY CLEAR; URINE COLOR YELLOW; URINE GLUCOSE-RANDOM* NEGATIVE (Negative); URINE KETONES NEGATIVE (Negative); URINE NITRITE-REFLEX NEGATIVE (Negative); URINE PROTEIN (DIPSTICK) NEGATIVE (Negative); URINE SPECIFIC GRAVITY <= 1.005 (1.005-1.035); URINE UROBILINOGEN 0.2 E.U./dl (0.2-1.0)
[2019-02-20] MEDS ORDERED: LUMIGAN2.5 M1 OPHTHALMIC (16:54)
[2019-02-20] MEDS ORDERED: ATORVASTATIN CA40 MG PO (16:55)
[2019-02-20] MEDS ORDERED: METHOTREXATE 22.5 MG PO (16:55)
[2019-02-20 17:03] LABS: URINE LEUKOCYTES-REFLEX 1+ (Negative)
[2019-02-20 17:17] LABS: BACTERIA-REFLEX 1-9 Few /HPF (None Seen); CASTS None Seen /LPF (None Seen); CRYSTALS None Seen /LPF (None Seen); SQUAMOUS 0-3 Few /LPF (0-3); URINE RBC 0-2 Rare /HPF (0-2); URINE WBC-REFLEX 6-15 Few /HPF (0-5); YEAST-REFLEX Present (None Seen)
[2019-02-20 17:30] VITALS: BP 159/71
--- NOTE | 2019-02-20 17:55 | NUR ---
PATIENT ARRIVED FROM ER FOR CELLULITIS. ALERT X4 FROM HOME WITH . PAIN MANAGED WITH MEDICATIONS, UP WITH ASSISTANCE TO COMMODE. PIVOTS FOR TRANSFERS, NON-AMBULATING. LUNGS CLEAR ALL BASES, EDEMA 2+ LEFT LOWER EXTREMITY, PICTURES OF WOUND AND DRESSING IN PLACE TO LEFT LOWER EXTREMITY. ADMISSION ASSESMENT AND HISTORY COMPLETED. FALL PRECAUTIONS IN PLACE. CALL LIGHT IN REACH CALLS APPROPRIATMENDEL, BEDSIDE. HOME MEDS RECONCILED.
[2019-02-20 20:54] VITALS: BP 136/90
--- NOTE | 2019-02-21 01:42 | NUR ---
PATIENT AOX3 MAKES NEEDS KNOWN. PATIENT HAS LEFT FOOT CELLULITIS, DRESSING ON LEFT FOOT IS C/D/I. PATIENT USES A BEDSIDE COMMODE. PATIENT IS NON WEIGHT BEARING TO LEFT FOOT D/T OLD FX. FALL PRECAUTION IN PLACE. PATIENT NEEDS MINIMUM ASSISTANCE WITH ADL, BED MOBILITY, TRANSFER AND TOILETING. CALL LIGHT WITHIN REACH. FALL PRECAUTION IN PLACE. PATIENT IN BED ASLEEP AT THIS TIME BREATHING REGULAR AND UNLABOURED.
[2019-02-21 03:44] VITALS: BP 125/51
[2019-02-21 04:52] LABS: HEMATOCRIT 28.8 % (37.0-47.0); HEMOGLOBIN 9.7 gm/dL (12.0-15.0); MCH 31.1 pg (26.0-34.0); MCHC 33.8 g/dL (28.0-37.0); RBC 3.13 mil/uL (4.20-5.00); RDW 15.5 % (10.5-14.5); WBC 5.8 thou/uL (4.0-11.0)
[2019-02-21 05:04] LABS: CALCIUM 8.8 mg/dL (8.5-10.1); CREATININE 0.7 mg/dL (0.6-1.0); POTASSIUM 3.8 mmol/L (3.5-5.1)
[2019-02-21 08:16] VITALS: BP 138/54
[2019-02-21 14:41] VITALS: BP 117/43
--- NOTE | 2019-02-21 15:29 | NUR ---
ASSUMED CARE 0700. ALERT X4, PAIN MANAGED WITH MEDICATIONS. WOUND CARE DOCTOR ROUNDED AND PROVIDED DRESSING TREATMENTS. PT CONTINUES ON IV ANTIBIOTCS. INFECTIONS DISEASE, AND ORTHO DOCTOR CONSULTATED. WOUND CULTER SENT TO LAB. PT AND OT ROUNDED ON PATIENT. FALL PRECAUTIONS IN PLACE. BEDSIDE AT THIS TIME. CALLS APPROPRIATELTY.
[2019-02-21 20:08] VITALS: BP 141/70
[2019-02-22 04:26] VITALS: BP 130/55
--- NOTE | 2019-02-22 04:48 | NUR ---
PATIENT ALERT AND ORIENTED X4, HOWEVER, DOES NOT FOLLOW INSTRUCTIONS AT TIMES WHICH INCREASES HER POSSIBLE FALL RISK. IVF INFUSING W/O COMPLICATION. BS MONITORED PER ORDER. REMAINS NWB ON LEFT LOWER LEG. UP TO BSC THROUGHOUT THE NIGHT SEVERAL TIMES TO VOID. AT BEDSIDE IN EARLY EVENING. MEDICATED FOR PAIN X1. PATIENT WILL HAVE A VANCO TROUGH DRAWN TODAY AT 1430. TROUBLE SLEEPING, GIVEN ZOFRAN WITH GOOD RESULTS. RESTING QUIETLY. WILL MONITOR.
--- NOTE | 2019-02-22 04:50 | HC ---
[facility] [place] [address] CONSULTATION Name: CHIKI SHIELDS Room #: 452- ADM IN M.R.#: [id number] Admission: 02/20/19 ������������������ Attend Phys: Morales Yu MD Discharge: ������������������ Date of : 32 Report #: [id number] THIS REPORT FOR: //name// CC: Morales Hyatt ATTENDING PHYSICIAN: Dr. Yu. REASON FOR EVALUATION: Inflammatory process involving the distal left lower extremity, complicated history dating back to October. She has had a previous fracture complicated by postoperative infection. HISTORY OF PRESENT ILLNESS: Chart reviewed. The patient examined. This is an 88-year-old female who had injury as a result of a fall that led to a fracture of left tib-fib, required surgery for stabilization, placement of hardware. Course was complicated by surgical site infection. Hardware was ultimately removed in December. She has had ongoing issues with multiple ulcerations. She had been followed by Wound Care as an outpatient as well as home health noted increasing inflammation associated with the distal lower extremity, recommended she be evaluated including admission. Ultimately, she has not been systemically ill. Denies any fever or chills. She has had poor appetite with anorexia, some weight loss. Denies any significant pulmonary or gastrointestinal related complaints. She is empirically started on therapy with piperacillin, tazobactam as well as vancomycin. At this point, she is not encephalopathic. ALLERGIES: SULFA AND CODEINE. CURRENT MEDICATIONS: Include metformin, levothyroxine, Zosyn, hydrocodone, ondansetron as needed, vancomycin. PAST MEDICAL HISTORY: Above noted diabetes mellitus type 2, non--insulin requiring. 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 SOCIAL HISTORY: No ethanol or smoking. No illicit drug use. FAMILY HISTORY: Noncontributory. REVIEW OF SYSTEMS: Otherwise unremarkable 10-point review of systems with exception of the above. PHYSICAL EXAMINATION: GENERAL: She is pleasant, alert, cooperative. She appears somewhat chronically ill, mildly undernourished. She is easily lucid. VITAL SIGNS: Temperature 98.3, pulse 66, respirations 16, blood pressure 125/51. [facility] [address] [place] [address] CONSULTATION Name: CHIKI SHIELDS Room #: 452-P [facility] IN [facility].#: [id number] Admission: 02/20/19 ������������������ Attend Phys: Morales Yu MD Discharge: ������������������ Date of : 32 Report #: [id number] SKIN: Warm, dry, no rashes. HEENT: Otherwise, unremarkable. Normocephalic. Extraocular muscles intact. NECK: Supple. LUNGS: Diminished breath sounds. HEART: Regular. I do not appreciate murmur. ABDOMEN: Soft, nontender, nondistended. EXTREMITIES: Left lower extremity has a dressing in place. Some moderate degree of swelling and appears to be inflammation noted. GENITOURINARY AND RECTAL: Deferred. LABORATORY DATA: Plain film of the foot shows diffuse osteopenia, no definite acute osseous findings to suggest osteomyelitis. Ultrasound, venous system, lower extremity was otherwise unremarkable. CBC: White count of 7.8, H and H 10.6 and 31.5, platelets of 291. Electrolytes: Sodium 128, potassium 4.0, chloride 92, bicarbonate is 28, anion gap of 8, BUN and creatinine 10 and 0.7. LFTs unremarkable. Albumin of 3.2, total protein 7.0. Estimated GFR of 79. CRP of 14.1. Lactic acid 2.6. Urinalysis 6-15 white cells, some yeast present, 1-9 bacteria. ASSESSMENT: Left lower extremity multiple ulcers in setting of a previous trauma. I suspect some component of vasculopathy as well. Agree with empiric antimicrobial therapy. Cultures of the wound and blood and urine are pending. We will await those results. There is evidence of yeast on the UA, may dose with antifungal. Continue wound care as prescribed, elevation and compression as possible. ��������������������������������������������� <ELECTRONICALLY SIGNED> ���������������������������������������� By: Duke Avitia MD ��������������������������������������������� 02/22/19 0450 [id number] 1316 Duke Avitia MD /nt
[2019-02-22 07:20] VITALS: BP 132/51
[2019-02-22 14:25] VITALS: BP 135/64
[2019-02-22 19:23] VITALS: BP 163/60
--- NOTE | 2019-02-22 19:25 | NUR ---
ASSUMED CARE OF PATIENT AT 0715, PATIENT ALERT AND ORIENTED X 4. PATIENT UP WITH ASSIST X 1 TO BSC OR TO THE CHAIR. PATIENT IS NON-WEIGHT BEARING ON LEFT FOOT. WOUND CARE DONE TO LEFT FOOT AND LEFT HEEL, WOUND CULTURE DONE DURING WOUND CARE. PATIENT HAS LEFT FOREARM IV IN PLACE WITH NS AT 80CC/HR, PATIENT ALSO RECEIVES IV ANTIBIOTICS, VANCO TROUGH DONE 13 TODAY. PATIENT DENIES PAIN THIS SHIFT. AT BEDSIDE MOST OF THE DAY. WILL CONTINUE TO MONITOR.
--- NOTE | 2019-02-23 02:56 | NUR ---
patient aox3 makes needs known. pain controlled this shift. patient uses a bedside commode, pericare and barrier cream applied as needed. patient is non weight bearing on left foot. call light within reach. fall precaution in place. patient in bed asleep at this time breathing regulrar and unlaboured.
[2019-02-23 03:03] VITALS: BP 141/51
[2019-02-23 08:00] VITALS: BP 151/59
[2019-02-23] MEDS ORDERED: KEFLEX500 M1 PO (10:46)
[2019-02-23 10:59] VITALS: BP 151/59
--- NOTE | 2019-02-23 11:42 | NUR ---
PT PROGRESSING TOWARDS GOALS. DRESSING CHANGED PER ORDER. PT DC HOME WITH HH TODAY. WILL FOLLOW UP WITH WOUND CARE DOCTOR TOMORROW AND [facility] [address] [facility].
== END 2019-02-23 11:46 | disposition home health service (06) | DRG 603 ==
LOC: ER 13:18 → EROBS 16:19 → 4W 16:39
PROVIDERS: Emergency Medicine; ADMIT Hospitalist
DX: L03.116 Cellulitis of left lower limb (principal); L97.929 Non-pressure chronic ulcer of unspecified part of left lower leg with unspecified severity; E78.5 Hyperlipidemia, unspecified; E11.9 Type 2 diabetes mellitus without complications; M06.9 Rheumatoid arthritis, unspecified; I25.10 Atherosclerotic heart disease of native coronary artery without angina pectoris; Z77.22 Contact with and (suspected) exposure to environmental tobacco smoke (acute) (chronic); I10 Essential (primary) hypertension; Z88.8 Allergy status to other drugs, medicaments and biological substances; E03.9 Hypothyroidism, unspecified; Z79.899 Other long term (current) drug therapy; Z88.2 Allergy status to sulfonamides; Z79.82 Long term (current) use of aspirin; Z79.84 Long term (current) use of oral hypoglycemic drugs; Z85.3 Personal history of malignant neoplasm of breast; Z85.828 Personal history of other malignant neoplasm of skin; Z95.5 Presence of coronary angioplasty implant and graft; Z90.710 Acquired absence of both cervix and uterus
CPT/HCPCS: 10040

== ENCOUNTER → 2019-02-24 | Outpatient (CLI) | payer OTHER ==
[~2019-02-24] MED LIST changes: +ATORVASTATIN CA40 MG PO; +KEFLEX500 M1 PO; +LUMIGAN2.5 M1 OPHTHALMIC; +METHOTREXATE 22.5 MG PO
== END ==
LOC: HYPER 07:02
DX: T81.49XD Infection following a procedure, other surgical site, subsequent encounter (principal); L89.620 Pressure ulcer of left heel, unstageable; L89.523 Pressure ulcer of left ankle, stage 3; S90.822D Blister (nonthermal), left foot, subsequent encounter; I10 Essential (primary) hypertension; I25.10 Atherosclerotic heart disease of native coronary artery without angina pectoris; M25.572 Pain in left ankle and joints of left foot; M62.81 Muscle weakness (generalized); E03.9 Hypothyroidism, unspecified; E08.42 Diabetes mellitus due to underlying condition with diabetic polyneuropathy; E78.5 Hyperlipidemia, unspecified; K21.9 Gastro-esophageal reflux disease without esophagitis; M05.89 Other rheumatoid arthritis with rheumatoid factor of multiple sites; M47.896 Other spondylosis, lumbar region; R06.02 Shortness of breath; R20.2 Paresthesia of skin; R26.9 Unspecified abnormalities of gait and mobility; B35.1 Tinea unguium; M06.9 Rheumatoid arthritis, unspecified; Z85.118 Personal history of other malignant neoplasm of bronchus and lung; Z85.3 Personal history of malignant neoplasm of breast; Z85.828 Personal history of other malignant neoplasm of skin; Z86.19 Personal history of other infectious and parasitic diseases; Z87.891 Personal history of nicotine dependence; X58.XXXD Exposure to other specified factors, subsequent encounter; Y83.8 Other surgical procedures as the cause of abnormal reaction of the patient, or of later complication, without mention of misadventure at the time of the procedure

== ENCOUNTER → 2019-03-10 | Outpatient (CLI) | payer OTHER | LOC: HYPER 06:38 | DX: T81.49XD Infection following a procedure, other surgical site, subsequent encounter (principal); Y83.8 Other surgical procedures as the cause of abnormal reaction of the patient, or of later complication, without mention of misadventure at the time of the procedure; E11.621 Type 2 diabetes mellitus with foot ulcer; L89.620 Pressure ulcer of left heel, unstageable; L97.421 Non-pressure chronic ulcer of left heel and midfoot limited to breakdown of skin; E11.622 Type 2 diabetes mellitus with other skin ulcer; L89.523 Pressure ulcer of left ankle, stage 3; L97.321 Non-pressure chronic ulcer of left ankle limited to breakdown of skin; S90.822D Blister (nonthermal), left foot, subsequent encounter; S91.302D Unspecified open wound, left foot, subsequent encounter; E11.42 Type 2 diabetes mellitus with diabetic polyneuropathy; E11.39 Type 2 diabetes mellitus with other diabetic ophthalmic complication; H40.9 Unspecified glaucoma; E11.36 Type 2 diabetes mellitus with diabetic cataract; E78.5 Hyperlipidemia, unspecified; E03.9 Hypothyroidism, unspecified; I10 Essential (primary) hypertension; I25.10 Atherosclerotic heart disease of native coronary artery without angina pectoris; K21.9 Gastro-esophageal reflux disease without esophagitis; R06.02 Shortness of breath; R20.2 Paresthesia of skin; M05.89 Other rheumatoid arthritis with rheumatoid factor of multiple sites; M47.896 Other spondylosis, lumbar region; Z85.118 Personal history of other malignant neoplasm of bronchus and lung; Z85.3 Personal history of malignant neoplasm of breast; Z85.828 Personal history of other malignant neoplasm of skin; Z86.19 Personal history of other infectious and parasitic diseases; Z87.891 Personal history of nicotine dependence; X58.XXXD Exposure to other specified factors, subsequent encounter ==

== ENCOUNTER → 2019-03-24 | Outpatient (CLI) | payer OTHER | LOC: HYPER 06:39 | DX: T81.49XD Infection following a procedure, other surgical site, subsequent encounter (principal); E11.621 Type 2 diabetes mellitus with foot ulcer; L89.620 Pressure ulcer of left heel, unstageable; L97.422 Non-pressure chronic ulcer of left heel and midfoot with fat layer exposed; L89.890 Pressure ulcer of other site, unstageable; L97.521 Non-pressure chronic ulcer of other part of left foot limited to breakdown of skin; E11.622 Type 2 diabetes mellitus with other skin ulcer; L89.523 Pressure ulcer of left ankle, stage 3; L97.321 Non-pressure chronic ulcer of left ankle limited to breakdown of skin; E11.36 Type 2 diabetes mellitus with diabetic cataract; E11.39 Type 2 diabetes mellitus with other diabetic ophthalmic complication; H40.9 Unspecified glaucoma; H42 Glaucoma in diseases classified elsewhere; I10 Essential (primary) hypertension; E03.9 Hypothyroidism, unspecified; E78.2 Mixed hyperlipidemia; I25.10 Atherosclerotic heart disease of native coronary artery without angina pectoris; K21.9 Gastro-esophageal reflux disease without esophagitis; B35.1 Tinea unguium; M25.572 Pain in left ankle and joints of left foot; M62.81 Muscle weakness (generalized); M05.89 Other rheumatoid arthritis with rheumatoid factor of multiple sites; M47.896 Other spondylosis, lumbar region; M06.9 Rheumatoid arthritis, unspecified; R20.2 Paresthesia of skin; R06.02 Shortness of breath; R26.9 Unspecified abnormalities of gait and mobility; Z87.891 Personal history of nicotine dependence; Z85.118 Personal history of other malignant neoplasm of bronchus and lung; Z87.01 Personal history of pneumonia (recurrent); Z85.3 Personal history of malignant neoplasm of breast; Z85.828 Personal history of other malignant neoplasm of skin; Z86.19 Personal history of other infectious and parasitic diseases; Y83.8 Other surgical procedures as the cause of abnormal reaction of the patient, or of later complication, without mention of misadventure at the time of the procedure ==

== ENCOUNTER → 2019-05-05 | Outpatient (CLI) | payer OTHER | LOC: HYPER 06:38 | DX: T81.49XD Infection following a procedure, other surgical site, subsequent encounter (principal); E11.622 Type 2 diabetes mellitus with other skin ulcer; L89.523 Pressure ulcer of left ankle, stage 3; L97.321 Non-pressure chronic ulcer of left ankle limited to breakdown of skin; E11.621 Type 2 diabetes mellitus with foot ulcer; L89.893 Pressure ulcer of other site, stage 3; L97.521 Non-pressure chronic ulcer of other part of left foot limited to breakdown of skin; S91.302D Unspecified open wound, left foot, subsequent encounter; E11.42 Type 2 diabetes mellitus with diabetic polyneuropathy; E11.36 Type 2 diabetes mellitus with diabetic cataract; E11.39 Type 2 diabetes mellitus with other diabetic ophthalmic complication; H40.9 Unspecified glaucoma; E03.9 Hypothyroidism, unspecified; E78.5 Hyperlipidemia, unspecified; M25.572 Pain in left ankle and joints of left foot; R26.9 Unspecified abnormalities of gait and mobility; I10 Essential (primary) hypertension; I25.10 Atherosclerotic heart disease of native coronary artery without angina pectoris; K21.9 Gastro-esophageal reflux disease without esophagitis; M62.81 Muscle weakness (generalized); M05.89 Other rheumatoid arthritis with rheumatoid factor of multiple sites; M47.896 Other spondylosis, lumbar region; R06.02 Shortness of breath; R20.2 Paresthesia of skin; Z85.118 Personal history of other malignant neoplasm of bronchus and lung; Z85.3 Personal history of malignant neoplasm of breast; Z85.828 Personal history of other malignant neoplasm of skin; Z86.19 Personal history of other infectious and parasitic diseases; Z87.891 Personal history of nicotine dependence; X58.XXXD Exposure to other specified factors, subsequent encounter ==

== ENCOUNTER → 2019-05-14 | Outpatient (CLI) | payer OTHER | LOC: HYPER 06:37 | DX: T81.49XD Infection following a procedure, other surgical site, subsequent encounter (principal); L89.523 Pressure ulcer of left ankle, stage 3; L89.893 Pressure ulcer of other site, stage 3; I10 Essential (primary) hypertension; I25.10 Atherosclerotic heart disease of native coronary artery without angina pectoris; E03.9 Hypothyroidism, unspecified; E78.5 Hyperlipidemia, unspecified; K21.9 Gastro-esophageal reflux disease without esophagitis; B35.1 Tinea unguium; M25.572 Pain in left ankle and joints of left foot; M62.81 Muscle weakness (generalized); M05.89 Other rheumatoid arthritis with rheumatoid factor of multiple sites; M47.896 Other spondylosis, lumbar region; M06.9 Rheumatoid arthritis, unspecified; R06.02 Shortness of breath; R26.9 Unspecified abnormalities of gait and mobility; Z85.118 Personal history of other malignant neoplasm of bronchus and lung; Z85.3 Personal history of malignant neoplasm of breast; Z85.828 Personal history of other malignant neoplasm of skin; Z86.19 Personal history of other infectious and parasitic diseases; Z87.891 Personal history of nicotine dependence; Y83.8 Other surgical procedures as the cause of abnormal reaction of the patient, or of later complication, without mention of misadventure at the time of the procedure ==

== ENCOUNTER → 2019-05-21 | Outpatient (CLI) | payer OTHER | LOC: HYPER 06:56 | DX: T81.49XD Infection following a procedure, other surgical site, subsequent encounter (principal); E11.622 Type 2 diabetes mellitus with other skin ulcer; L89.523 Pressure ulcer of left ankle, stage 3; L97.321 Non-pressure chronic ulcer of left ankle limited to breakdown of skin; E11.621 Type 2 diabetes mellitus with foot ulcer; L89.893 Pressure ulcer of other site, stage 3; L97.521 Non-pressure chronic ulcer of other part of left foot limited to breakdown of skin; S91.302D Unspecified open wound, left foot, subsequent encounter; E11.36 Type 2 diabetes mellitus with diabetic cataract; E11.39 Type 2 diabetes mellitus with other diabetic ophthalmic complication; H40.9 Unspecified glaucoma; E11.42 Type 2 diabetes mellitus with diabetic polyneuropathy; E03.9 Hypothyroidism, unspecified; E78.5 Hyperlipidemia, unspecified; R26.9 Unspecified abnormalities of gait and mobility; I10 Essential (primary) hypertension; I25.10 Atherosclerotic heart disease of native coronary artery without angina pectoris; K21.9 Gastro-esophageal reflux disease without esophagitis; M05.89 Other rheumatoid arthritis with rheumatoid factor of multiple sites; M47.896 Other spondylosis, lumbar region; R06.02 Shortness of breath; R20.2 Paresthesia of skin; Z85.118 Personal history of other malignant neoplasm of bronchus and lung; Z85.3 Personal history of malignant neoplasm of breast; Z85.828 Personal history of other malignant neoplasm of skin; Z86.19 Personal history of other infectious and parasitic diseases; Z87.891 Personal history of nicotine dependence; X58.XXXD Exposure to other specified factors, subsequent encounter; Y83.8 Other surgical procedures as the cause of abnormal reaction of the patient, or of later complication, without mention of misadventure at the time of the procedure ==

== ENCOUNTER → 2019-05-28 | Outpatient (CLI) | payer OTHER | LOC: HYPER 06:56 | DX: T81.49XD Infection following a procedure, other surgical site, subsequent encounter (principal); L89.523 Pressure ulcer of left ankle, stage 3; S91.302D Unspecified open wound, left foot, subsequent encounter; E03.9 Hypothyroidism, unspecified; E78.5 Hyperlipidemia, unspecified; I10 Essential (primary) hypertension; I25.10 Atherosclerotic heart disease of native coronary artery without angina pectoris; M05.89 Other rheumatoid arthritis with rheumatoid factor of multiple sites; M47.896 Other spondylosis, lumbar region; R06.02 Shortness of breath; R20.2 Paresthesia of skin; M25.572 Pain in left ankle and joints of left foot; B35.1 Tinea unguium; R26.9 Unspecified abnormalities of gait and mobility; M62.81 Muscle weakness (generalized); M06.9 Rheumatoid arthritis, unspecified; Z87.891 Personal history of nicotine dependence; Z85.118 Personal history of other malignant neoplasm of bronchus and lung; Z87.01 Personal history of pneumonia (recurrent); Z85.3 Personal history of malignant neoplasm of breast; Z85.828 Personal history of other malignant neoplasm of skin; Z86.19 Personal history of other infectious and parasitic diseases; X58.XXXD Exposure to other specified factors, subsequent encounter; Y83.8 Other surgical procedures as the cause of abnormal reaction of the patient, or of later complication, without mention of misadventure at the time of the procedure ==

== ENCOUNTER → 2019-06-03 | Outpatient (CLI) | payer OTHER | LOC: HYPER 07:03 | DX: T81.49XD Infection following a procedure, other surgical site, subsequent encounter (principal); L89.523 Pressure ulcer of left ankle, stage 3; M25.572 Pain in left ankle and joints of left foot; S91.302D Unspecified open wound, left foot, subsequent encounter; S91.012A Laceration without foreign body, left ankle, initial encounter; E03.9 Hypothyroidism, unspecified; E78.5 Hyperlipidemia, unspecified; I10 Essential (primary) hypertension; I25.10 Atherosclerotic heart disease of native coronary artery without angina pectoris; K21.9 Gastro-esophageal reflux disease without esophagitis; M05.89 Other rheumatoid arthritis with rheumatoid factor of multiple sites; M47.896 Other spondylosis, lumbar region; B35.1 Tinea unguium; M06.9 Rheumatoid arthritis, unspecified; M62.81 Muscle weakness (generalized); R06.02 Shortness of breath; R26.9 Unspecified abnormalities of gait and mobility; R20.2 Paresthesia of skin; Z87.891 Personal history of nicotine dependence; Z85.118 Personal history of other malignant neoplasm of bronchus and lung; Z85.3 Personal history of malignant neoplasm of breast; Z85.828 Personal history of other malignant neoplasm of skin; Z86.19 Personal history of other infectious and parasitic diseases; Z87.01 Personal history of pneumonia (recurrent); X58.XXXD Exposure to other specified factors, subsequent encounter; X58.XXXA Exposure to other specified factors, initial encounter; Y93.89 Activity, other specified; Y92.89 Other specified places as the place of occurrence of the external cause; Y99.8 Other external cause status; Y83.8 Other surgical procedures as the cause of abnormal reaction of the patient, or of later complication, without mention of misadventure at the time of the procedure ==

== ENCOUNTER → 2019-06-11 | Outpatient (CLI) | payer OTHER | LOC: HYPER 06:48 | DX: T81.49XD Infection following a procedure, other surgical site, subsequent encounter (principal); L89.523 Pressure ulcer of left ankle, stage 3; L89.893 Pressure ulcer of other site, stage 3; L97.322 Non-pressure chronic ulcer of left ankle with fat layer exposed; S91.302D Unspecified open wound, left foot, subsequent encounter; E03.9 Hypothyroidism, unspecified; I10 Essential (primary) hypertension; E78.5 Hyperlipidemia, unspecified; I25.10 Atherosclerotic heart disease of native coronary artery without angina pectoris; K21.9 Gastro-esophageal reflux disease without esophagitis; B35.1 Tinea unguium; M05.89 Other rheumatoid arthritis with rheumatoid factor of multiple sites; M25.572 Pain in left ankle and joints of left foot; M62.81 Muscle weakness (generalized); M47.896 Other spondylosis, lumbar region; R06.02 Shortness of breath; R26.9 Unspecified abnormalities of gait and mobility; R20.2 Paresthesia of skin; M06.9 Rheumatoid arthritis, unspecified; Z85.118 Personal history of other malignant neoplasm of bronchus and lung; Z85.3 Personal history of malignant neoplasm of breast; Z85.828 Personal history of other malignant neoplasm of skin; Z86.19 Personal history of other infectious and parasitic diseases; Z87.891 Personal history of nicotine dependence; Z87.01 Personal history of pneumonia (recurrent); X58.XXXD Exposure to other specified factors, subsequent encounter; Y83.8 Other surgical procedures as the cause of abnormal reaction of the patient, or of later complication, without mention of misadventure at the time of the procedure ==

== ENCOUNTER → 2019-06-17 | Outpatient (CLI) | payer OTHER | LOC: HYPER 06:51 | DX: T81.49XD Infection following a procedure, other surgical site, subsequent encounter (principal); E11.622 Type 2 diabetes mellitus with other skin ulcer; L89.523 Pressure ulcer of left ankle, stage 3; L97.322 Non-pressure chronic ulcer of left ankle with fat layer exposed; E11.621 Type 2 diabetes mellitus with foot ulcer; L89.893 Pressure ulcer of other site, stage 3; L97.521 Non-pressure chronic ulcer of other part of left foot limited to breakdown of skin; E11.42 Type 2 diabetes mellitus with diabetic polyneuropathy; E11.39 Type 2 diabetes mellitus with other diabetic ophthalmic complication; H40.9 Unspecified glaucoma; E11.36 Type 2 diabetes mellitus with diabetic cataract; E03.9 Hypothyroidism, unspecified; E78.5 Hyperlipidemia, unspecified; M25.572 Pain in left ankle and joints of left foot; I10 Essential (primary) hypertension; I25.10 Atherosclerotic heart disease of native coronary artery without angina pectoris; R26.9 Unspecified abnormalities of gait and mobility; K21.9 Gastro-esophageal reflux disease without esophagitis; R06.02 Shortness of breath; R20.2 Paresthesia of skin; M62.81 Muscle weakness (generalized); M05.89 Other rheumatoid arthritis with rheumatoid factor of multiple sites; M47.896 Other spondylosis, lumbar region; Z85.118 Personal history of other malignant neoplasm of bronchus and lung; Z85.3 Personal history of malignant neoplasm of breast; Z85.828 Personal history of other malignant neoplasm of skin; Z86.19 Personal history of other infectious and parasitic diseases; Z87.891 Personal history of nicotine dependence; Y83.8 Other surgical procedures as the cause of abnormal reaction of the patient, or of later complication, without mention of misadventure at the time of the procedure ==

== ENCOUNTER → 2019-06-29 | Outpatient (CLI) | payer OTHER | LOC: HYPER 07:39 | DX: T81.49XD Infection following a procedure, other surgical site, subsequent encounter (principal); L89.523 Pressure ulcer of left ankle, stage 3; L89.893 Pressure ulcer of other site, stage 3; L97.322 Non-pressure chronic ulcer of left ankle with fat layer exposed; E03.9 Hypothyroidism, unspecified; E78.5 Hyperlipidemia, unspecified; I10 Essential (primary) hypertension; I25.10 Atherosclerotic heart disease of native coronary artery without angina pectoris; K21.9 Gastro-esophageal reflux disease without esophagitis; M05.89 Other rheumatoid arthritis with rheumatoid factor of multiple sites; M47.896 Other spondylosis, lumbar region; B35.1 Tinea unguium; M25.572 Pain in left ankle and joints of left foot; M62.81 Muscle weakness (generalized); M06.9 Rheumatoid arthritis, unspecified; R26.9 Unspecified abnormalities of gait and mobility; R06.02 Shortness of breath; Z87.891 Personal history of nicotine dependence; Z85.118 Personal history of other malignant neoplasm of bronchus and lung; Z85.3 Personal history of malignant neoplasm of breast; Z85.828 Personal history of other malignant neoplasm of skin; Z86.19 Personal history of other infectious and parasitic diseases; Z87.01 Personal history of pneumonia (recurrent); Y83.8 Other surgical procedures as the cause of abnormal reaction of the patient, or of later complication, without mention of misadventure at the time of the procedure ==

== ENCOUNTER → 2019-07-13 | Outpatient (CLI) | payer OTHER | LOC: HYPER 10:30 | DX: T81.31XD Disruption of external operation (surgical) wound, not elsewhere classified, subsequent encounter (principal); E11.622 Type 2 diabetes mellitus with other skin ulcer; L89.523 Pressure ulcer of left ankle, stage 3; L97.321 Non-pressure chronic ulcer of left ankle limited to breakdown of skin; L89.893 Pressure ulcer of other site, stage 3; L97.521 Non-pressure chronic ulcer of other part of left foot limited to breakdown of skin; L89.623 Pressure ulcer of left heel, stage 3; L97.421 Non-pressure chronic ulcer of left heel and midfoot limited to breakdown of skin; E11.42 Type 2 diabetes mellitus with diabetic polyneuropathy; E03.9 Hypothyroidism, unspecified; E78.5 Hyperlipidemia, unspecified; I10 Essential (primary) hypertension; I25.10 Atherosclerotic heart disease of native coronary artery without angina pectoris; K21.9 Gastro-esophageal reflux disease without esophagitis; M05.89 Other rheumatoid arthritis with rheumatoid factor of multiple sites; M47.896 Other spondylosis, lumbar region; R06.02 Shortness of breath; R20.2 Paresthesia of skin; E11.36 Type 2 diabetes mellitus with diabetic cataract; E11.39 Type 2 diabetes mellitus with other diabetic ophthalmic complication; H42 Glaucoma in diseases classified elsewhere; M06.9 Rheumatoid arthritis, unspecified; Z85.118 Personal history of other malignant neoplasm of bronchus and lung; Z85.3 Personal history of malignant neoplasm of breast; Z85.828 Personal history of other malignant neoplasm of skin; Z86.19 Personal history of other infectious and parasitic diseases; Z87.891 Personal history of nicotine dependence; Z79.82 Long term (current) use of aspirin; Z79.84 Long term (current) use of oral hypoglycemic drugs; Y83.8 Other surgical procedures as the cause of abnormal reaction of the patient, or of later complication, without mention of misadventure at the time of the procedure ==

== ENCOUNTER → 2019-07-27 | Outpatient (CLI) | payer OTHER | LOC: HYPER 09:56 | DX: T81.49XD Infection following a procedure, other surgical site, subsequent encounter (principal); L89.623 Pressure ulcer of left heel, stage 3; L89.893 Pressure ulcer of other site, stage 3; L89.523 Pressure ulcer of left ankle, stage 3; M25.572 Pain in left ankle and joints of left foot; M62.81 Muscle weakness (generalized); E03.9 Hypothyroidism, unspecified; E78.5 Hyperlipidemia, unspecified; I10 Essential (primary) hypertension; I25.10 Atherosclerotic heart disease of native coronary artery without angina pectoris; K21.9 Gastro-esophageal reflux disease without esophagitis; M05.89 Other rheumatoid arthritis with rheumatoid factor of multiple sites; M47.896 Other spondylosis, lumbar region; B35.1 Tinea unguium; M06.9 Rheumatoid arthritis, unspecified; R06.02 Shortness of breath; R26.9 Unspecified abnormalities of gait and mobility; R20.2 Paresthesia of skin; Z85.118 Personal history of other malignant neoplasm of bronchus and lung; Z85.3 Personal history of malignant neoplasm of breast; Z85.828 Personal history of other malignant neoplasm of skin; Z86.19 Personal history of other infectious and parasitic diseases; Z87.01 Personal history of pneumonia (recurrent); Z87.891 Personal history of nicotine dependence ==

== ENCOUNTER → 2019-08-24 | Outpatient (CLI) | payer OTHER | LOC: HYPER 15:08 | DX: T81.49XD Infection following a procedure, other surgical site, subsequent encounter (principal); E11.622 Type 2 diabetes mellitus with other skin ulcer; L97.321 Non-pressure chronic ulcer of left ankle limited to breakdown of skin; L89.523 Pressure ulcer of left ankle, stage 3; E11.621 Type 2 diabetes mellitus with foot ulcer; L97.421 Non-pressure chronic ulcer of left heel and midfoot limited to breakdown of skin; L89.623 Pressure ulcer of left heel, stage 3; L97.521 Non-pressure chronic ulcer of other part of left foot limited to breakdown of skin; L89.893 Pressure ulcer of other site, stage 3; E11.36 Type 2 diabetes mellitus with diabetic cataract; E11.39 Type 2 diabetes mellitus with other diabetic ophthalmic complication; H40.9 Unspecified glaucoma; H42 Glaucoma in diseases classified elsewhere; M25.572 Pain in left ankle and joints of left foot; I25.10 Atherosclerotic heart disease of native coronary artery without angina pectoris; M62.81 Muscle weakness (generalized); I10 Essential (primary) hypertension; E03.9 Hypothyroidism, unspecified; E78.5 Hyperlipidemia, unspecified; K21.9 Gastro-esophageal reflux disease without esophagitis; M05.89 Other rheumatoid arthritis with rheumatoid factor of multiple sites; M47.896 Other spondylosis, lumbar region; L84 Corns and callosities; B35.1 Tinea unguium; M06.9 Rheumatoid arthritis, unspecified; R26.9 Unspecified abnormalities of gait and mobility; R06.02 Shortness of breath; R20.2 Paresthesia of skin; Z85.118 Personal history of other malignant neoplasm of bronchus and lung; Z85.3 Personal history of malignant neoplasm of breast; Z85.828 Personal history of other malignant neoplasm of skin; Z87.01 Personal history of pneumonia (recurrent); Z86.19 Personal history of other infectious and parasitic diseases; Z87.891 Personal history of nicotine dependence; Y83.8 Other surgical procedures as the cause of abnormal reaction of the patient, or of later complication, without mention of misadventure at the time of the procedure ==

== ENCOUNTER → 2019-09-07 | Outpatient (CLI) | payer OTHER | LOC: HYPER 09:43 | DX: T81.49XD Infection following a procedure, other surgical site, subsequent encounter (principal); L89.523 Pressure ulcer of left ankle, stage 3; L89.893 Pressure ulcer of other site, stage 3; L89.623 Pressure ulcer of left heel, stage 3; L84 Corns and callosities; I25.10 Atherosclerotic heart disease of native coronary artery without angina pectoris; I10 Essential (primary) hypertension; E03.9 Hypothyroidism, unspecified; E78.5 Hyperlipidemia, unspecified; K21.9 Gastro-esophageal reflux disease without esophagitis; M05.89 Other rheumatoid arthritis with rheumatoid factor of multiple sites; M25.572 Pain in left ankle and joints of left foot; M62.81 Muscle weakness (generalized); M06.9 Rheumatoid arthritis, unspecified; B35.1 Tinea unguium; M47.896 Other spondylosis, lumbar region; R06.02 Shortness of breath; R26.9 Unspecified abnormalities of gait and mobility; R20.2 Paresthesia of skin; Z85.118 Personal history of other malignant neoplasm of bronchus and lung; Z85.3 Personal history of malignant neoplasm of breast; Z85.828 Personal history of other malignant neoplasm of skin; Z86.19 Personal history of other infectious and parasitic diseases; Z87.01 Personal history of pneumonia (recurrent); Z87.891 Personal history of nicotine dependence; Y83.8 Other surgical procedures as the cause of abnormal reaction of the patient, or of later complication, without mention of misadventure at the time of the procedure ==

== ENCOUNTER → 2019-09-29 | Outpatient (CLI) | payer OTHER | LOC: HYPER 09-21 08:07 | DX: T81.49XD Infection following a procedure, other surgical site, subsequent encounter (principal); E11.621 Type 2 diabetes mellitus with foot ulcer; L89.893 Pressure ulcer of other site, stage 3; L97.521 Non-pressure chronic ulcer of other part of left foot limited to breakdown of skin; E11.622 Type 2 diabetes mellitus with other skin ulcer; L89.523 Pressure ulcer of left ankle, stage 3; L97.321 Non-pressure chronic ulcer of left ankle limited to breakdown of skin; L84 Corns and callosities; E11.42 Type 2 diabetes mellitus with diabetic polyneuropathy; E11.36 Type 2 diabetes mellitus with diabetic cataract; E11.39 Type 2 diabetes mellitus with other diabetic ophthalmic complication; H40.9 Unspecified glaucoma; E03.9 Hypothyroidism, unspecified; E78.5 Hyperlipidemia, unspecified; I25.10 Atherosclerotic heart disease of native coronary artery without angina pectoris; I10 Essential (primary) hypertension; R26.9 Unspecified abnormalities of gait and mobility; K21.9 Gastro-esophageal reflux disease without esophagitis; R06.02 Shortness of breath; R20.2 Paresthesia of skin; M62.81 Muscle weakness (generalized); M25.572 Pain in left ankle and joints of left foot; M05.89 Other rheumatoid arthritis with rheumatoid factor of multiple sites; M47.896 Other spondylosis, lumbar region; Z85.118 Personal history of other malignant neoplasm of bronchus and lung; Z85.3 Personal history of malignant neoplasm of breast; Z85.828 Personal history of other malignant neoplasm of skin; Z86.19 Personal history of other infectious and parasitic diseases; Z87.891 Personal history of nicotine dependence; Y83.8 Other surgical procedures as the cause of abnormal reaction of the patient, or of later complication, without mention of misadventure at the time of the procedure ==

== ENCOUNTER → 2019-10-08 | Outpatient (CLI) | payer OTHER | LOC: SJCVCIMAG 10-02 10:58 | DX: I10 Essential (primary) hypertension (principal); E78.00 Pure hypercholesterolemia, unspecified; I73.9 Peripheral vascular disease, unspecified; Z79.82 Long term (current) use of aspirin; Z79.899 Other long term (current) drug therapy; Z79.84 Long term (current) use of oral hypoglycemic drugs; Z88.2 Allergy status to sulfonamides; Z88.5 Allergy status to narcotic agent; Z87.891 Personal history of nicotine dependence ==

== ENCOUNTER → 2020-03-08 | Outpatient (CLI) | payer OTHER | LOC: SJCVC 16:13 | PROVIDERS: ATTEND Internal Medicine Cardiovascular Disease | DX: R94.31 Abnormal electrocardiogram [ECG] [EKG] (principal); I48.91 Unspecified atrial fibrillation; I73.9 Peripheral vascular disease, unspecified; I25.10 Atherosclerotic heart disease of native coronary artery without angina pectoris; E78.00 Pure hypercholesterolemia, unspecified; I10 Essential (primary) hypertension ==

== ENCOUNTER → 2020-11-29 | Outpatient (CLI) | payer OTHER | LOC: SJCVC 13:07 | PROVIDERS: ATTEND Nuclear Medicine Nuclear Cardiology | DX: R94.31 Abnormal electrocardiogram [ECG] [EKG] (principal); R00.0 Tachycardia, unspecified; I25.10 Atherosclerotic heart disease of native coronary artery without angina pectoris; I48.91 Unspecified atrial fibrillation; E11.51 Type 2 diabetes mellitus with diabetic peripheral angiopathy without gangrene; E05.00 Thyrotoxicosis with diffuse goiter without thyrotoxic crisis or storm; E11.39 Type 2 diabetes mellitus with other diabetic ophthalmic complication; H40.9 Unspecified glaucoma; I77.9 Disorder of arteries and arterioles, unspecified; I10 Essential (primary) hypertension; D68.59 Other primary thrombophilia; E03.9 Hypothyroidism, unspecified; E78.00 Pure hypercholesterolemia, unspecified; Z85.118 Personal history of other malignant neoplasm of bronchus and lung; Z85.3 Personal history of malignant neoplasm of breast; Z87.891 Personal history of nicotine dependence; Z72.89 Other problems related to lifestyle; Z88.2 Allergy status to sulfonamides; Z88.5 Allergy status to narcotic agent; Z79.899 Other long term (current) drug therapy; Z79.84 Long term (current) use of oral hypoglycemic drugs ==